=== PATIENT | female | born 1940 | race Caucasian/White ===

== ENCOUNTER → 2016-06-19 | Outpatient (CLI) | payer MEDICARE ==
[~2016-06-19] MED LIST: ADV250INH INH; ALEN70TA39 PO; AMLO5TAB2 PO; ATOR1TAB19 PO; CEFU250T PO; COMBAER6 INH; CYAN1000VL IM; DIAZ10TA2 PO; DIPH2.5T14 PO; FLUC200T2 PO; IPRASOL4 IN; LIDO1OIN2 TOP; LIDO1SOL7 PO; LIDO5DIS36 TD; LORT1TAB PO; MIAC1SPR; MUPI2OI TOP; MYLASSUD PO; NYST50SS SS; OMEP20CA3 PO; OXYC15TA76 PO; POTA50TAB PO; PRED10TA PO; PULM0.5S INH; ZOST0.25 EX
--- NOTE | 2016-06-19 10:44 | REP ---
Clinical: Sudden onset left-sided chest pain and shortness of breath. Technique: PA and lateral. Comparison: 07/20/2014. Findings: Lung roche demonstrate COPD/emphysematous changes and chronic interstitial changes without obvious acute consolidation, effusion, or pneumothorax. Mediastinum and cardiac silhouette are stable. Skeletal structures demonstrate chronic scoliosis and degenerative changes. Impression: Chronic COPD and emphysematous changes with scattered bilateral scarring and interstitial disease. If the patient remains symptomatic consider chest CT for further investigation. Signed by See Walker MD 06/19/2016 10:35 A
== END ==
LOC: M SMT 10:09
PROVIDERS: ATTEND Internal Medicine Pulmonary Disease
DX: R09.1 Pleurisy (principal)

== ENCOUNTER 2016-11-21 14:54 | Inpatient (IN) | payer MEDICARE ==
[~2016-11-21] VITALS: Ht 149.9 cm; Wt 37.0 kg
[~2016-11-21 14:54] MED LIST changes: +CEFU1TAB20 PO; -CEFU250T PO; -LIDO5DIS36 TD; +LIDO5DIS41 TD; -MIAC1SPR; +MIAC200S2
[2016-11-21 16:50] VITALS: BP 162/74
[2016-11-21] MEDS ORDERED: ENOXAPARIN 30 MG/0.3 ML SYR (J1650) SC ONE (17:15)
[2016-11-21] MEDS ORDERED: MEROPENEM INJ 1 GM in D5W MINI-BAG PLUS 100 ML IV SCH (17:15)
[2016-11-21] MEDS ORDERED: amLODIPine 5 MG TAB PO ONE (17:15)
[2016-11-21] MEDS ORDERED: VANCOMYCIN HCL 1,000 MG, VIAL MATE ADAPTER 1 EACH in D5W/0.2% SODIUM CHLORIDE 250 ML IV SCH (17:15)
[2016-11-21] MEDS ORDERED: DOXYCYCLINE HYCLATE 100 MG in D5W MINI-BAG PLUS 100 ML IV ONE (17:30)
[2016-11-21 17:39] LABS: ABG BASE EXCESS 8.2 (-2.0-2.0); ABG HCO3 34.9 MEQ/L (22.0-26.0); ABG PARTIAL PRESSURE CO2 57.6 mmHg (35.0-45.0); ABG PARTIAL PRESSURE O2 99.8 mmHg (75.0-100.0); ABG TOTAL CO2 36.6 MEQ/L (23.0-31.0)
[2016-11-21] MEDS: methylPREDNISolone INJ 125 MG/2 ML VIAL (J2930) IV SCH ×2 (17:40→22:27)
[2016-11-21] MEDS ORDERED: REST0.05 OU (18:57)
[2016-11-21] MEDS ORDERED: PANT40TA2 PO (18:57)
[2016-11-21] MEDS ORDERED: PROAAER10 INH (18:57)
[2016-11-21] MEDS ORDERED: ASPI325T PO (18:57)
[2016-11-21] MEDS ORDERED: FISH1000 PO (18:57)
[2016-11-21] MEDS ORDERED: BROV15NE INH (18:57)
[2016-11-21] MEDS ORDERED: OXYC20TA2 PO (18:57)
[2016-11-21] MEDS ORDERED: VITA10002 PO (18:57)
[2016-11-21] MEDS ORDERED: MEGE400SUS PO (18:57)
[2016-11-21] MEDS ORDERED: CALCTAB68 PO (18:57)
[2016-11-21] MEDS ORDERED: AMIT25TA PO (18:57)
[2016-11-21] MEDS: IPRATROPIUM 0.5MG/ALBUTEROL 2.5MG INH SOL UD 3ML (DUONEB)(J7620) NEB SCH (19:42)
[2016-11-21 20:00] VITALS: BP 142/66
[2016-11-22] VITALS (7 sets, daily range): BP systolic 130–165; BP diastolic 65–74; O2SAT 94
[2016-11-22] MEDS: methylPREDNISolone INJ 125 MG/2 ML VIAL (J2930) IV SCH ×4 (05:09→22:29)
[2016-11-22 06:08] LABS: ABG BASE EXCESS 5.7 (-2.0-2.0); ABG HCO3 29.9 MEQ/L (22.0-26.0); ABG PARTIAL PRESSURE O2 70.4 mmHg (75.0-100.0); ABG STANDARD HCO3 29.6 MEQ/L (22.0-26.0); ABG TOTAL CO2 31.2 MEQ/L (23.0-31.0); ABG pH (ARTERIAL) 7.471 UNITS (7.350-7.450)
--- NOTE | 2016-11-22 07:11 | REP ---
REASON FOR EXAM: Hypoxia. COMPARISON: 06/19/2016, the latest prior. The lung roche are hyper-expanded, status quo. No acute patchy parenchymal opacities or pleural effusions have developed. The technique utilized in obtaining the radiograph has magnified the cardiac silhouette and accentuated the interstitial markings. There is no change in the cardiomediastinal silhouette. The heart is not enlarged. IMPRESSION: No significant change in the prior exam. No evidence of acute cardiopulmonary disease on this portable exam. Signed by Nabeel Clemons DO 11/22/2016 02:40 P
[2016-11-22] MEDS ORDERED: oxyCODONE 20 MG CR TAB PO PRN (07:45)
--- NOTE | 2016-11-22 07:53 | REP ---
PORTABLE CHEST X-RAY: Single view. HISTORY: Respiratory failure. COMPARISON STUDY: November 21, 2016. FINDINGS: EKG electrodes are seen along with oxygen delivery tubing. The lungs are somewhat hyperinflated, free of infiltrate. Heart is not felt to be enlarged. Pulmonary vasculature is not increased. There is evidence of a healing rib fracture involving the left posterior 9th rib. Signed by Jeff Santoro MD 11/22/2016 08:54 A
[2016-11-22] MEDS: NORCO, ANEXSIA 5/325MG TABLET (HYDROcodone/ACETAMINOPHEN) PO PRN ×3 (08:08→19:59)
[2016-11-22] MEDS: ATORVASTATIN 10 MG TAB PO SCH (08:08)
[2016-11-22] MEDS: IPRATROPIUM 0.5MG/ALBUTEROL 2.5MG INH SOL UD 3ML (DUONEB)(J7620) NEB SCH ×3 (08:23→22:01)
[2016-11-22] MEDS: BUDESONIDE 0.5 MG/2 ML INHALATION SUSPENSION INH SCH ×2 (09:00→22:00)
[2016-11-22] MEDS ORDERED: PANTOPRAZOLE 40MG INJ (PROTONIX) (C9113) IV SCH ×2 (09:00)
[2016-11-22 10:05] LABS: MEAN CORPUSCULAR HEMOGLOBIN 31.7 pg (27.0-33.0); MEAN CORPUSCULAR HGB CONC 32.3 g/dl (32.0-36.5); MEAN CORPUSCULAR VOLUME 98.2 fl (80.0-96.0); RED CELL DISTRIBUTION WIDTH 13.6 % (11.5-14.5); WHITE BLOOD COUNT 4.1 K/mm3 (4.0-10.0)
[2016-11-22] MEDS: CYANOCOBALAMIN 500 MCG TAB PO SCH (10:29)
[2016-11-22] MEDS: MEGESTROL SUSP 400 MG/10 ML UDC PO SCH ×2 (10:29→19:58)
[2016-11-22 10:32] LABS: ALBUMIN/GLOBULIN RATIO 0.86 (1.00-1.93); ALKALINE PHOSPHATASE 64 U/L (45-117); ALT/SGPT 14 U/L (12-78); ANION GAP 8 MEQ/L (8-16); AST/SGOT 15 U/L (15-37); BILIRUBIN,TOTAL 0.5 MG/DL (0.2-1.0); BLOOD UREA NITROGEN 11 MG/DL (7-18); CALCIUM LEVEL 8.2 MG/DL (8.8-10.2); CARBON DIOXIDE LEVEL 34 MEQ/L (21-32); CHLORIDE LEVEL 98 MEQ/L (98-107); CREATININE FOR GFR 0.93 MG/DL (0.55-1.02); GLOMERULAR FILTRATION RATE > 60.0 (>39); GLUCOSE, FASTING 261 MG/DL (83-110); POTASSIUM SERUM 4.9 MEQ/L (3.5-5.1); SODIUM LEVEL 140 MEQ/L (136-145); TOTAL PROTEIN 6.5 GM/DL (6.4-8.2)
--- NOTE | 2016-11-22 15:03 | HPE ---
DATE OF ADMISSION: 11/21/2016 This is a 76-year-old female who was a direct admit from [facility] in [place], [place]. The patient is currently in the ICU with a BiPAP machine. Patient is not accompanied by anyone at the time of examination, but was able to answer all of the questions with no difficulty and ease. The patient states that she has been progressively short of breath for the past 2-3 days and only went to the ER per her 's request. Patient states in the past 3 days she has been having a progressive cough that has worsened recently. Patient states that now she has a yellow cough. The patient states that the cough now will wake her up from her sleep and that she has trouble breathing when she has coughing. The patient admits to having nausea, but denies having any diarrhea or vomiting. The patient states that she does have it when she has to exert energy to walk from one place to another. The patient states that she is on home oxygen of 2 liters. The patient denies having any fevers, chills, any night sweats, weight loss, weight gain, having any recent sick contact. Per [facility]'s ER documentation, the patient came in because she was weak, nonverbal and was gasping for air. The patient was placed on oximeter and was saturating at 88% with 2 liters of nasal cannula. Then she was placed on a BiPAP with a rate set at 12, an inspiratory pressure of 14 and expiratory pressure of 7 with an oxygen flow rate of 2. The patient's heart rate at the ER was 98 beats per minute, normal sinus rhythm. Her blood pressure was 99/54 with a mean blood pressure of 69. The patient's temperature was 96.9. At the ER she was given DuoNebs one each inhalation, hydrocortisone 200 mg IV. Her ER blood results from [facility] were the following; WBC of 7.3, hemoglobin of 15.2, hematocrit of 46.2, platelets of 350, sodium of 135, potassium of 4.8, chloride of 97, carbon dioxide of 35.8, BUN of 12, creatinine of 0.74, glucose of 106, AST of 24, ALT of 18. Troponin was less than 0.02. Her ABGs overall are the following: pH of 7.380, pCO2 of 65.7, pO2 of 145.0 with oxygen saturation of 98.1. The patient was stabilized on the BiPAP and was stable for transfer to [facility] where we then will continue her medical management. The patient arrived comfortable, awake, communicative. The patient states that she is feeling a little better, but she still does have that cough lingering and the BiPAP machine is not comfortable. CRITICAL CARE TIME: Was a total of 1 hour excluding all procedures was spent with the patient. PAST MEDICAL HISTORY: The patient does have a history of COPD for which she is being followed by Dr. Motley and osteoporosis, hypertension, hyperlipidemia. SURGICAL HISTORY: Patient admits to having bilateral cataract surgery 7-8 years ago. SOCIAL HISTORY: Patient denies any alcohol or drug use. Patient does admit to smoking. Smoking one pack in the last two days. Patient normally smokes one pack per day and she has been smoking for the last 60 years. HOME MEDICATIONS: - albuterol/ipratropium one puff INH four times a day - albuterol/ipratropium one solution inhaled every 4 hours as needed for shortness of breath - alendronate sodium 70 mg by mouth every week - aluminium magnesium simethicone 30 mL by mouth four times a day as needed for heartburn - amlodipine besylate 5 mg by mouth daily - atorvastatin calcium 10 mg by mouth - Pulmicort 0.5 mg INH twice a day - calcitonin 200 units NA daily - vitamin B12 1000 mg IM - diphenoxylate atropine 2.5 to 0.025% mg two tablets by mouth four times a day as needed for diarrhea - fluconazole 200 mg by mouth daily - lidocaine HCL one topical every 6 hours as needed for pain - lidocaine HCL viscous one teaspoon by mouth four times a day as needed for sore mouth - lidocaine patches 12 hours on, 12 hours off - Lortab 7.5/325 mg one tablet by mouth every 6 hours as needed for mild pain - mupirocin one dose topically twice a day to apply on face - nystatin 5 mL suspension four times a day - omeprazole 20 mg by mouth daily - K-phos 500 mg by mouth twice a day - prednisone 10 mg by mouth as directed - Advair one puff twice a day - Zostrix 0.25% 1 cream ex four times a day ALLERGIES: Patient states to have allergies to: 1. GABAPENTIN. 2. PREGABALIN. 3. SULFA ANTIBIOTICS. 4. TETRACYCLINE. VITAL SIGNS: 100.2, pulse 85, respiratory rate 42, blood pressure 162/74 with mean blood pressure of 103, pulse oximetry 91% with an NIPPV with an FiO2 of 40. PHYSICAL EXAMINATION: GENERAL APPEARANCE: Patient does not look in any acute distress. Looks like a pleasant elderly lady who has a BiPAP mask over her face. HEART EXAM: Regular rate, normal rhythm, normal heart sounds with no murmurs, gallops or rubs appreciates. No jugular venous distention (JVD) was noted. 1+ pedal edema is noted bilaterally. RESPIRATORY: Decreased lung sounds bilaterally, accessory muscle use, no wheezing or stridor or rales are appreciated during this exam. ABDOMINAL EXAM: Soft. Normal bowel sounds. No distention, tenderness, guarding or rebound appreciated. EXTREMITIES: Normal extremities. Full range of motion. 1+ pitting edema noted at the ankles bilaterally. LABORATORIES: No new labs were drawn at the time of presentation. Will put orders in. IMAGING: No new chest x-ray was done at the time of exam. Will put orders in for that as well. ASSESSMENT/PLAN: 1. Acute hypercapnic hypoxic respiratory failure secondary to COPD exacerbation. We have given the patient Solu-Medrol 60 mg IV every 6 hours, DuoNeb 3 mL, doxycycline hyclate 100 mg IV one dose. Patient is also a FULL CODE. Ventilation for BiPAP settings were set at 14/7. 2. Pedal edema. Put on Lasix as needed. 3. Hypertension. Norvasc 5 mg by mouth one dose was given. 4. Hypercholesterolemia. Lipitor 10 mg by mouth daily. 5. Gastrointestinal (GI) prophylaxis. Protonix 40 mg IV daily. 6. Deep vein thrombosis (DVT) prophylaxis. Thromboembolic deterrent stockings (TEDS) and Clifton's were placed and the patient is placed on Lovenox 30 mg subcu one time dose. My preceptor for this patient encounter was Dr. Gilberto Motley. The preceptor was physically present in the building room the encounter and was fully available. As needed, all aspects of the patient interview, examination, medical decision making process, and medical care plan development were reviewed and approved by the preceptor. The preceptor is aware and concurs with the plan as stated in the body of this note and will attest to such by her cosignature. I, Gilberto Motley, agree with the history above after conducting an independent history and physical exam. BONY
[2016-11-23] MEDS: NORCO, ANEXSIA 5/325MG TABLET (HYDROcodone/ACETAMINOPHEN) PO PRN ×4 (02:58→20:13)
[2016-11-23] MEDS: methylPREDNISolone INJ 125 MG/2 ML VIAL (J2930) IV SCH ×4 (05:17→23:31)
[2016-11-23 05:57] LABS: MEAN CORPUSCULAR HEMOGLOBIN 32.1 pg (27.0-33.0); MEAN CORPUSCULAR VOLUME 97.4 fl (80.0-96.0); RED CELL DISTRIBUTION WIDTH 13.7 % (11.5-14.5); WHITE BLOOD COUNT 8.1 K/mm3 (4.0-10.0)
[2016-11-23 06:00] VITALS: BP 132/62
[2016-11-23 06:29] LABS: ALBUMIN 2.8 GM/DL (3.2-5.2); ALBUMIN/GLOBULIN RATIO 0.74 (1.00-1.93); ALKALINE PHOSPHATASE 58 U/L (45-117); ALT/SGPT 14 U/L (12-78); ANION GAP 3 MEQ/L (8-16); AST/SGOT 13 U/L (15-37); BILIRUBIN,TOTAL 0.4 MG/DL (0.2-1.0); BLOOD UREA NITROGEN 11 MG/DL (7-18); CALCIUM LEVEL 8.5 MG/DL (8.8-10.2); CARBON DIOXIDE LEVEL 38 MEQ/L (21-32); CHLORIDE LEVEL 100 MEQ/L (98-107); CREATININE FOR GFR 0.58 MG/DL (0.55-1.02); GLOMERULAR FILTRATION RATE > 60.0 (>39); GLUCOSE, FASTING 117 MG/DL (83-110); POTASSIUM SERUM 4.6 MEQ/L (3.5-5.1); SODIUM LEVEL 141 MEQ/L (136-145); TOTAL PROTEIN 6.6 GM/DL (6.4-8.2)
[2016-11-23] MEDS: amLODIPine 5 MG TAB PO SCH (07:58)
[2016-11-23] MEDS: CYANOCOBALAMIN 500 MCG TAB PO SCH (07:58)
[2016-11-23] MEDS: MEGESTROL SUSP 400 MG/10 ML UDC PO SCH ×2 (07:58→20:11)
[2016-11-23] MEDS: ATORVASTATIN 10 MG TAB PO SCH (07:58)
[2016-11-23] MEDS: BUDESONIDE 0.5 MG/2 ML INHALATION SUSPENSION INH SCH ×2 (08:11→20:36)
[2016-11-23] MEDS: IPRATROPIUM 0.5MG/ALBUTEROL 2.5MG INH SOL UD 3ML (DUONEB)(J7620) NEB SCH ×4 (08:11→20:36)
[2016-11-23] MEDS ORDERED: DULO30CA PO (10:52)
[2016-11-23] MEDS: DULoxetine 30 MG CAP (CYMBALTA) PO SCH ×2 (12:05→20:11)
[2016-11-23 14:00] VITALS: BP 130/70
--- NOTE | 2016-11-23 19:41 | IPN ---
DATE: 11/23/2016 Patient was seen and examined at the bedside. Chart has been reviewed. The patient continues to have mild respiratory distress, use of respiratory accessory muscles, but usually at baseline. She is awake, alert, oriented to herself, answers questions appropriately. Per nursing, the patient had a maximum temperature (T max) of 101.5 yesterday. Blood cultures were sent on 11/21/2016. Urine culture yesterday is pending. Urinalysis shows 3+ blood but negative nitrite, leukocyte esterase, 4 WBCs. Repeat chest x-ray shows free of infiltrate. There is a healing rib fracture at the left posterior 9th rib. The patient denies any dysuria, urgency, frequency. She has a chronic cough productive of white sputum. No nausea or vomiting. No abdominal pain. The patient has a healing rib fracture with pain on the left side, as well as a history of herpetic neuralgia, which has slightly improved with lidocaine. Maximum temperature 101.5. Current temperature 98.7. Pulse 90, Respiratory rate 20. Blood pressure 150/69, 95% on 2 liters nasal cannula. Generally, patient is awake and alert, answers questions appropriately with mild use of respiratory accessory muscles. No jugular venous distention (JVD). Decreased breath sounds bilaterally. Fine crackles at the bases and faint expiratory wheezing. Heart: S1, S2, sinus rhythm. No murmurs, rubs or gallops. Abdomen is soft, nontender, nondistended. Extremities show no pitting edema. LABORATORY DATA: 11/23/2016 CBC, metabolic panel, liver function tests have been reviewed. ASSESSMENT AND PLAN: This is a 76-year-old female with a history of end-stage chronic obstructive pulmonary disease (COPD), directly admitted from [facility] due to hypercapnic, hypercarbic respiratory failure, requiring bilevel positive airway pressure (BiPAP) therapy. The patient has been off BiPAP and transferred to medical-surgical floor. Current issues are: 1. COPD exacerbation, status post acute hypercapnic and hypoxic respiratory failure requiring BiPAP therapy, on Solu-Medrol 60 IV every 6 hours, DuoNebs, doxycycline. Currently a FULL CODE. 2. Hypertension. Will start on Norvasc 5 mg daily. 3. Hyperlipidemia, on Lipitor. 4. Vitamin B12 deficiency, on cyanocobalamin. 5. Protein-calorie malnutrition. Body mass index (BMI) of 16.9. On Megace. Nutrition consult.
[2016-11-23] MEDS: AMITRIPTYLINE 25 MG TAB PO SCH (20:11)
[2016-11-23] MEDS: PANTOPRAZOLE 40MG TAB (PROTONIX) PO SCH (20:12)
[2016-11-23] MEDS ORDERED: RESTASIS (PATIENT'S OWN MED) OU SCH (21:00)
[2016-11-23 22:00] VITALS: BP 158/72
[2016-11-24] MEDS: methylPREDNISolone INJ 125 MG/2 ML VIAL (J2930) IV SCH (05:28)
[2016-11-24] MEDS: NORCO, ANEXSIA 5/325MG TABLET (HYDROcodone/ACETAMINOPHEN) PO PRN ×4 (05:32→20:16)
[2016-11-24 05:35] LABS: MEAN CORPUSCULAR HEMOGLOBIN 31.3 pg (27.0-33.0); MEAN CORPUSCULAR VOLUME 97.6 fl (80.0-96.0); RED CELL DISTRIBUTION WIDTH 13.8 % (11.5-14.5)
[2016-11-24 06:00] VITALS: BP 147/65
[2016-11-24 06:03] LABS: ALBUMIN 2.8 GM/DL (3.2-5.2); ALBUMIN/GLOBULIN RATIO 0.85 (1.00-1.93); ALKALINE PHOSPHATASE 51 U/L (45-117); ALT/SGPT 16 U/L (12-78); ANION GAP 3 MEQ/L (8-16); AST/SGOT 14 U/L (15-37); BILIRUBIN,TOTAL 0.5 MG/DL (0.2-1.0); BLOOD UREA NITROGEN 11 MG/DL (7-18); CALCIUM LEVEL 8.5 MG/DL (8.8-10.2); CARBON DIOXIDE LEVEL 38 MEQ/L (21-32); CHLORIDE LEVEL 98 MEQ/L (98-107); CREATININE FOR GFR 0.58 MG/DL (0.55-1.02); GLOMERULAR FILTRATION RATE > 60.0 (>39); GLUCOSE, FASTING 116 MG/DL (83-110); POTASSIUM SERUM 4.5 MEQ/L (3.5-5.1); SODIUM LEVEL 139 MEQ/L (136-145); TOTAL PROTEIN 6.1 GM/DL (6.4-8.2)
[2016-11-24] MEDS ORDERED: IPRATROPIUM 0.5MG/ALBUTEROL 2.5MG INH SOL UD 3ML (DUONEB)(J7620) NEB PRN (06:30)
[2016-11-24] MEDS: BUDESONIDE 0.5 MG/2 ML INHALATION SUSPENSION INH SCH ×2 (08:09→19:53)
[2016-11-24] MEDS: IPRATROPIUM 0.5MG/ALBUTEROL 2.5MG INH SOL UD 3ML (DUONEB)(J7620) NEB SCH ×4 (08:09→19:53)
[2016-11-24] MEDS: DULoxetine 30 MG CAP (CYMBALTA) PO SCH ×2 (08:50→20:13)
[2016-11-24] MEDS: ATORVASTATIN 10 MG TAB PO SCH (08:50)
[2016-11-24] MEDS: CYANOCOBALAMIN 500 MCG TAB PO SCH (08:50)
[2016-11-24] MEDS: predniSONE 20 MG TAB PO SCH (08:50)
[2016-11-24] MEDS: MEGESTROL SUSP 400 MG/10 ML UDC PO SCH ×2 (08:51→20:12)
[2016-11-24] MEDS: amLODIPine 5 MG TAB PO SCH (08:52)
[2016-11-24] MEDS: CYCLOSPORINE 0.05% OU SCH ×2 (11:46→20:16)
[2016-11-24 14:00] VITALS: BP 128/58
[2016-11-24] MEDS: PANTOPRAZOLE 40MG TAB (PROTONIX) PO SCH (20:13)
[2016-11-24] MEDS: AMITRIPTYLINE 25 MG TAB PO SCH (20:13)
--- NOTE | 2016-11-24 21:09 | IPN ---
DATE: 11/24/2016 Patient seen and examined at the bedside. Chart has been reviewed. This morning patient states that she is feeling better. Shortness of breath at baseline on 2 liters nasal cannula. No fevers, chills, nausea, vomiting, chest pain, pressure, or tightness. Temperature 98.6, pulse 93, respiratory rate 16, blood pressure 147/65, 98% on 2 liters nasal cannula. GENERAL: Awake, alert, oriented times three. No jugular venous distention (JVD), thyromegaly, use of accessory muscles. No tracheal deviation. Able to complete full sentences. LUNGS: Diminished. Occasional faint wheezing. HEART: S1, S2, sinus rhythm. ABDOMEN: Soft, nontender, nondistended. Positive bowel sounds. EXTREMITIES: No pitting edema. CBC and metabolic panel have been reviewed. Microbiology has been reviewed. Respiratory panel negative. Methicillin-resistant Staphylococcus aureus (MRSA) pending. ASSESSMENT AND PLAN: This is a 76-year-old female with end-stage chronic obstructive pulmonary disease (COPD), on home oxygen 2 liters, admitted from [facility] due to hypercapnic, hypercarbic respiratory failure, chronic bilevel positive airway pressure (BiPAP) treatment, and was initially in intensive care unit (ICU) under medical education specialist care. IMPRESSION: 1. COPD exacerbation, status post acute hypercapnic hypoxic respiratory failure requiring BiPAP therapy, currently on Solu-Medrol, which we will taper down to prednisone, DuoNeb. She received one dose of doxycycline. No signs of infection on chest x-ray, urinalysis (UA), and blood cultures. No empiric antibiotics. 2. Chronic hypoxic respiratory failure, home dose of oxygen 2 liters daily. 3. Hypertension, on Norvasc 5 daily. 4. Hyperlipidemia, on Lipitor. 5. B12 deficiency. Cyanocobalamin. 6. Protein calorie malnutrition. Body mass index (BMI) of 16.9, on Megace. Nutrition consult. Awaiting physical therapy (PT) clearance and stability on oral prednisone. May discharge home. [facility]
[2016-11-24 22:00] VITALS: BP 140/67
[2016-11-25] MEDS: IPRATROPIUM 0.5MG/ALBUTEROL 2.5MG INH SOL UD 3ML (DUONEB)(J7620) NEB SCH ×3 (04:00→07:11)
[2016-11-25 06:00] VITALS: BP 145/70
[2016-11-25] MEDS ORDERED: PRED10TA2 PO (06:12)
[2016-11-25] MEDS: NORCO, ANEXSIA 5/325MG TABLET (HYDROcodone/ACETAMINOPHEN) PO PRN (06:16)
[2016-11-25 06:21] LABS: MEAN CORPUSCULAR HEMOGLOBIN 31.5 pg (27.0-33.0); MEAN CORPUSCULAR HGB CONC 32.7 g/dl (32.0-36.5); MEAN CORPUSCULAR VOLUME 96.3 fl (80.0-96.0); RED CELL DISTRIBUTION WIDTH 13.9 % (11.5-14.5); WHITE BLOOD COUNT 8.5 K/mm3 (4.0-10.0)
[2016-11-25 07:01] LABS: ALBUMIN 2.9 GM/DL (3.2-5.2); ALBUMIN/GLOBULIN RATIO 0.83 (1.00-1.93); ALKALINE PHOSPHATASE 49 U/L (45-117); ALT/SGPT 23 U/L (12-78); ANION GAP 7 MEQ/L (8-16); AST/SGOT 19 U/L (15-37); BILIRUBIN,TOTAL 0.5 MG/DL (0.2-1.0); BLOOD UREA NITROGEN 10 MG/DL (7-18); CALCIUM LEVEL 8.7 MG/DL (8.8-10.2); CARBON DIOXIDE LEVEL 35 MEQ/L (21-32); CHLORIDE LEVEL 99 MEQ/L (98-107); CREATININE FOR GFR 0.47 MG/DL (0.55-1.02); GLOMERULAR FILTRATION RATE > 60.0 (>39); GLUCOSE, FASTING 83 MG/DL (83-110); POTASSIUM SERUM 3.9 MEQ/L (3.5-5.1); SODIUM LEVEL 141 MEQ/L (136-145); TOTAL PROTEIN 6.4 GM/DL (6.4-8.2)
[2016-11-25] MEDS: BUDESONIDE 0.5 MG/2 ML INHALATION SUSPENSION INH SCH (07:11)
[2016-11-25] MEDS: MEGESTROL SUSP 400 MG/10 ML UDC PO SCH (08:21)
[2016-11-25] MEDS: predniSONE 20 MG TAB PO SCH (08:22)
[2016-11-25] MEDS: DULoxetine 30 MG CAP (CYMBALTA) PO SCH (08:22)
[2016-11-25] MEDS: ATORVASTATIN 10 MG TAB PO SCH (08:22)
[2016-11-25] MEDS: CYANOCOBALAMIN 500 MCG TAB PO SCH (08:22)
[2016-11-25 08:23] VITALS: BP 164/71
[2016-11-25] MEDS: amLODIPine 5 MG TAB PO SCH (08:23)
[2016-11-25] MEDS: CYCLOSPORINE 0.05% OU SCH (08:24)
--- NOTE | 2016-11-25 18:45 | DSES ---
DATE OF ADMISSION: 11/21/2016 DATE OF DISCHARGE: 11/25/2016 PRIMARY CARE PHYSICIAN: [facility], Dr. Soto. PRIMARY DISCHARGE DIAGNOSES: 1. Chronic obstructive pulmonary disease exacerbation. 2. Acute hypercapnic hypoxic respiratory failure. 3. Chronic hypoxic respiratory failure. 4. Hypertension. 5. Hyperlipidemia. 6. B12 deficiency. 7. Rib fracture left posterior ninth rib. DISCHARGE MEDICATIONS: - prednisone taper - albuterol four times a day and as needed - amitriptyline 25 mg at bedtime - Norvasc 2.5 mg daily - Brovana 15 mcg inhaled twice a day - aspirin 325 mg every two days - atorvastatin 10 at bedtime - Pulmicort 0.5 twice a day - calcium and vitamin D one tablet daily - vitamin B12 1000 mcg daily - duloxetine 30 mg twice a day - fish oil 1 gram daily - oxycodone 20 four times a day as needed - Protonix 40 every evening - Restasis one drop both eyes twice a day HOSPITAL COURSE: A 76-year-old female with history of history of chronic hypoxic respiratory failure, end-stage COPD, admitted from [facility], transferred to intensive care unit (ICU) under Dr. Motley due to hypercapnic, hypercarbic respiratory failure requiring bilevel positive airway pressure (BiPAP) therapy. She is a FULL CODE. Was initially under the license and permit specialist's care. Was given one dose of doxycycline. Chest x-ray was negative. Intravenous (IV) Solu-Medrol and managed on BiPAP. The patient was did well and was transferred to the medical/surgical floor to hospitalist service. She was continued on IV Solu-Medrol for another 48 hours and did quite well. Transition over to oral prednisone with scheduled DuoNeb. The patient had episodes of high blood pressure treated with Norvasc. She ambulated well at baseline. CBC and metabolic panel remained the same and unchanged. Respiratory panel was negative. Urine culture was negative. Blood cultures were negative. Repeat chest x-ray showed no acute change with chronic hyperinflated lungs free of infiltrate. She has evidence of a healing rib fracture involving the left posterior ninth rib. The patient is discharged in stable condition to followup with her pulmonary function technologist and primary care provider (PCP) in one week. LABORATORIES ON DISCHARGE: White count 8.5, hemoglobin 14, hematocrit 43, platelet count 334. Sodium 139, potassium 4.5, chloride 98, bicarbonate 38, BUN 11, creatinine 0.58, glucose of 116. MICROBIOLOGY: On 11/23, respiratory panel negative. Urine culture 11/22 negative. Two sets blood culture 11/21 negative. MRSA screen is pending. IMAGING: Chest x-ray 11/22: Hyperinflation. Healing ninth rib on the left. Free of infiltrate. TIME SPENT ON DISCHARGE: 30 minutes. [facility]
== END 2016-11-25 09:26 | disposition home or self-care (01) | DRG 189 ==
LOC: M ICU 16:29 → M MSPAV 11-22 13:15
PROVIDERS: ADMIT Internal Medicine Pulmonary Disease; ATTEND General Practice
DX: J96.02 Acute respiratory failure with hypercapnia (principal); J44.1 Chronic obstructive pulmonary disease with (acute) exacerbation; Z68.1 Body mass index [BMI] 19.9 or less, adult; E46 Unspecified protein-calorie malnutrition; J96.21 Acute and chronic respiratory failure with hypoxia; E78.5 Hyperlipidemia, unspecified; I10 Essential (primary) hypertension; E53.8 Deficiency of other specified B group vitamins; Z79.899 Other long term (current) drug therapy; F17.200 Nicotine dependence, unspecified, uncomplicated; Z79.52 Long term (current) use of systemic steroids; Z88.2 Allergy status to sulfonamides; Z88.8 Allergy status to other drugs, medicaments and biological substances